=== PATIENT | female | born 1935 | race Caucasian/White ===

== ENCOUNTER 2018-05-15 18:56 | Emergency (ER) | payer MEDICARE, OTHER ==
[~2018-05-15] VITALS: Wt 50.8 kg
[~2018-05-15 18:56] MED LIST: ARICEPT 5 MG TAB5 MG PO; ASPIR 8181 MG PO; AUGMENTIN 875875 MG PO; BONIVA150 MG PO; LIPITOR 20 MG T20 M1 PO; LISINOPRIL10 MG PO; NOHOMEMEDICATIONS; RISPERDAL0.25 MG PO; TRAMADOL 50 MG50 MG PO; TYLENOL EXTRA500 MG PO; XANAX 0.5 MG0.5 MG PO
[2018-05-15] MEDS ORDERED: ARICEPT 5 MG TAB5 MG PO (19:07)
[2018-05-15] MEDS ORDERED: TUMS PO (19:07)
[2018-05-15] MEDS ORDERED: VITAMIN D3400 UNIT PO (19:08)
[2018-05-15] MEDS ORDERED: RISPERDAL0.25 MG PO (19:08)
[2018-05-15] MEDS ORDERED: SEROQUEL 25 MG25 M1 PO (19:08)
[2018-05-15] MEDS ORDERED: HALDOL5 MG/1 ML PO (19:10)
[2018-05-15 19:50] LABS: ABSOLUTE BASOPHILS 0.1 thou/uL (0.0-0.2); ABSOLUTE EOSINOPHILS 0.1 thou/uL (0.0-0.7); ABSOLUTE MONOCYTES 0.5 thou/uL (0.0-1.2); ABSOLUTE NEUTROPHILS 7.2 thou/uL (1.6-8.1); BASOPHILS 0.7 %; EOSINOPHILS 0.9 %; HEMATOCRIT 43.7 % (37.0-47.0); HEMOGLOBIN 14.4 gm/dL (12.0-15.0); LYMPHOCYTES 11.2 %; MCH 30.2 pg (26.0-34.0); MCHC 32.8 g/dL (28.0-37.0); MCV 91.9 fL (80.0-100.0); MONOCYTES 5.5 %; MPV 8.7 fl. (7.2-11.1); NUCLEATED RBCS 0 /100WBC; PLATELET COUNT* 218 thou/uL (150-400); POLYS 81.7 %; RBC 4.75 mil/uL (4.20-5.00); RDW-CV 14.2 % (10.5-14.5); WBC 8.8 thou/uL (4.0-11.0)
[2018-05-15 20:01] LABS: APTT 23.4 Seconds (25.0-31.3); INR 1.1; PROTIME 10.4 Seconds (9.20-11.50)
[2018-05-15 20:02] LABS: ANION GAP 7 mmol/L (7-16); BUN 23 mg/dL (7-18); CALCIUM 9.1 mg/dL (8.5-10.1); CHLORIDE 105 mmol/L (98-107); CO2 27 mmol/L (21-32); CREATININE 1.1 mg/dL (0.6-1.3); GLUCOSE 138 mg/dL (70-99); POTASSIUM 3.9 mmol/L (3.5-5.1); SODIUM 139 mmol/L (136-145)
[2018-05-15 20:28] LABS: ALBUMIN 3.3 g/dL (3.4-5.0); ALKALINE PHOSPHATASE 92 U/L (46-116); CK-MB MASS 0.6 ng/mL (<0.5-3.6); NT-PRO BRAIN NAT PEPTIDE 150 pg/mL (<300); SGOT 14 U/L (15-37); SGPT 14 U/L (30-65); TOTAL BILIRUBIN 0.5 mg/dL (<0.1-1.0); TOTAL PROTEIN 6.6 g/dL (6.4-8.2); TROPONIN-I LEVEL <0.06 ng/mL (<0.06)
[2018-05-15 21:04] LABS: URINE BILIRUBIN NEGATIVE (Negative); URINE BLOOD NEGATIVE (Negative); URINE CLARITY CLEAR; URINE COLOR YELLOW; URINE GLUCOSE-RANDOM NEGATIVE (Negative); URINE KETONES NEGATIVE (Negative); URINE LEUKOCYTES-REFLEX NEGATIVE (Negative); URINE NITRITE-REFLEX NEGATIVE (Negative); URINE PROTEIN NEGATIVE (Negative); URINE SPECIFIC GRAVITY 1.025 (1.005-1.030)
[2018-05-15 22:19] VITALS: BP 125/68
--- NOTE | 2018-05-16 12:04 | EKG ---
[place] [address] ELECTROCARDIOGRAM REPORT Name: NIKKI FERNANDEZ Room: [facility]#: [id number] Admission: 05/15/18 Attend Phys: Discharge: 05/15/18 Date of : 33 Report #: [id number] THIS REPORT FOR: //name// [facility] ED Test Date: 2018-05-15 Test Time: 19:17:18 Pat Name: NIKKI FERNANDEZ Department: Room: Gender: F Lifter: Candice CRUZ : 1935 Requested By: Edd Donovan Order Number: [id number] MD: Seb Thornton Measurements Intervals [place] Rate: 77 P: 53 PA: 155 QRS: -38 QRSD: 126 T: 35 QT: 437 QTc: 495 Interpretive Statements Sinus rhythm Probable left atrial enlargement Nonspecific IVCD with LAD Baseline wander in lead(s) III Compared to ECG 12/20/2016 14:16:31 Intraventricular conduction delay now present Left-axis deviation no longer present Right ventricular hypertrophy no longer present Electronically Signed On 05-16-2018 12:04:31 CDT by Seb Thornton [email or web address] <ELECTRONICALLY SIGNED> By: Seb Thornton MD, FACC 05/16/18 1204 16 16 Seb Thornton MD, FACC /EPI
== END 2018-05-15 22:20 | disposition home or self-care (01) ==
LOC: M.ERS 18:56
PROVIDERS: Emergency Medicine Emergency Medical Services
DX: T43.4X1A Poisoning by butyrophenone and thiothixene neuroleptics, accidental (unintentional), initial encounter (principal); Y92.89 Other specified places as the place of occurrence of the external cause; I10 Essential (primary) hypertension; E78.00 Pure hypercholesterolemia, unspecified; F17.210 Nicotine dependence, cigarettes, uncomplicated; Z86.73 Personal history of transient ischemic attack (TIA), and cerebral infarction without residual deficits; Z85.43 Personal history of malignant neoplasm of ovary; Z90.710 Acquired absence of both cervix and uterus

== ENCOUNTER 2019-07-22 08:49 | Emergency (ER) | payer MEDICARE, OTHER ==
[~2019-07-22] VITALS: Ht 152.4 cm; Wt 39.0 kg
[~2019-07-22 08:49] MED LIST changes: +HALDOL5 MG/1 ML PO; +SEROQUEL 25 MG25 M1 PO; +TUMS PO; +VITAMIN D3400 UNIT PO
[2019-07-22] MEDS ORDERED: ONDANSETRON HCL4 M2 PO (09:01)
[2019-07-22] MEDS ORDERED: MILK OF MA400 MG/5 M PO (09:02)
[2019-07-22] MEDS ORDERED: IBUPROFEN 200200 M1 PO (09:02)
[2019-07-22] MEDS ORDERED: TRAZODONE HCL50 MG PO (09:03)
[2019-07-22] MEDS ORDERED: MIRALAX17 GM PO (09:03)
[2019-07-22] MEDS ORDERED: DULCOLAX10 MG RECTAL (09:03)
[2019-07-22 09:39] LABS: HEMOGLOBIN 11.7 gm/dL (12.0-15.0); MCH 25.5 pg (26.0-34.0); MCHC 31.7 g/dL (28.0-37.0); MCV 80.4 fL (80.0-100.0); MPV 9.1 fl. (7.2-11.1); RBC 4.6 mil/uL (4.20-5.00); RDW-CV 19.5 % (10.5-14.5); WBC 6.7 thou/uL (4.0-11.0)
[2019-07-22 10:05] LABS: ANION GAP 11 mmol/L (7-16); BUN 29 mg/dL (7-18); CALCIUM 9.2 mg/dL (8.5-10.1); CHLORIDE 107 mmol/L (98-107); CO2 25 mmol/L (21-32); CREATININE 1.2 mg/dL (0.6-1.3); GLUCOSE 127 mg/dL (70-99); POTASSIUM 4.1 mmol/L (3.5-5.1); SODIUM 143 mmol/L (136-145)
[2019-07-22 10:14] LABS: TROPONIN-I LEVEL <0.06 ng/mL (<0.06)
[2019-07-22 12:31] VITALS: BP 151/82
--- NOTE | 2019-07-22 14:15 | EKG ---
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: : 1935 Requested By: Edd Donovan Order Number: [id number] MD: Adriel José Measurements Intervals [place] Rate: 79 P: 49 SD: 131 QRS: -29 QRSD: 123 T: 27 QT: 426 QTc: 489 Interpretive Statements Sinus rhythm Left atrial enlargement IVCD, consider atypical RBBB Baseline wander in lead(s) I Compared to ECG 05/15/2018 19:17:18 No significant changes Electronically Signed On 07-22-2019 14:15:28 CDT by Adriel José [email or web address] <ELECTRONICALLY SIGNED> By: Adriel José MD, [facility] 07/22/19 1415 09 0906 Adriel José MD, [facility] /EPI
== END 2019-07-22 12:31 | disposition home or self-care (01) ==
LOC: M.ERS 08:49
PROVIDERS: Emergency Medicine Emergency Medical Services
DX: M54.2 Cervicalgia (principal); I10 Essential (primary) hypertension; E78.00 Pure hypercholesterolemia, unspecified; M81.0 Age-related osteoporosis without current pathological fracture; F17.210 Nicotine dependence, cigarettes, uncomplicated; Z85.43 Personal history of malignant neoplasm of ovary; Z90.710 Acquired absence of both cervix and uterus; Z86.73 Personal history of transient ischemic attack (TIA), and cerebral infarction without residual deficits; W01.0XXA Fall on same level from slipping, tripping and stumbling without subsequent striking against object, initial encounter; Y93.89 Activity, other specified; Y92.128 Other place in nursing home as the place of occurrence of the external cause; Y99.8 Other external cause status